=== PATIENT | female | born 1935 | race Caucasian/White ===

== ENCOUNTER 2023-04-02 19:25 | Emergency (ER) | payer MEDICARE ==
[~2023-04-02] VITALS: Ht 144.8 cm; Wt 36.4 kg
--- NOTE | 2023-04-02 19:38 | NUR ---
COVERED WITH WARMED BLANKETS, SON AND FAMILY AT BEDSIDE.
--- NOTE | 2023-04-02 20:00 | NUR ---
Patient arrived to ambulance bay via private car with ALOC at 1935. Son Fred accompanied immediately back to room with physician at bedside. Per son DNR with comfort. Unable to obtain vitals. Patient gaunt non responsive and cool to touch.
== END 2023-04-02 22:00 ==
LOC: ER 19:25
DX: R41.82 Altered mental status, unspecified (principal)
CPT/HCPCS: 99285